=== PATIENT | male | born 1960 | race Caucasian/White ===

== ENCOUNTER 2018-01-25 07:38 | Outpatient (CLI) ==
--- NOTE | 2018-01-25 08:33 | US ---
EXAM: Ultrasound abdomen limited. HISTORY: Upper abdominal pain. COMPARISON: None available. TECHNIQUE: Abdominal, real time with image documentation: limited (eg, single organ, quadrant, foll ow-up) FINDINGS: The liver demonstrates increased parenchymal echogenicity. There is no intrahepatic bilia ry dilatation. Portal venous flow is normal in direction. The gallbladder contains mobile intralumi nal echogenic structures with some shadowing suggested. One image suggests color flow within these s tructures (image 38) which may be artifactual as no color flow seen on other images in this area. Th ere is no gallbladder wall thickening or pericholecystic fluid. Common duct measures approximately 0 .5 cm. Visualized portions of the pancreas are unremarkable. IMPRESSION: 1. Cholelithiasis. Underlying polyp or mass is not felt to be likely. Consider follow-up ultrasoun d in 3 months for reassessment. 2. Fatty liver.
== END 2018-01-25 07:39 | disposition home or self-care (01) ==
LOC: RAD 07:38
PROVIDERS: ATTEND Family Medicine
DX: R10.10 Upper abdominal pain, unspecified (principal)